=== PATIENT | male | born 1945 | race Caucasian/White ===

== ENCOUNTER → 2016-08-16 | Outpatient (CLI) | payer MEDICARE, MEDICAID ==
[~2016-08-16] MED LIST: ISOVUE-370 76% 100ML VIAL (Q9967) As Ordered ONE
--- NOTE | 2016-08-17 06:41 | REP ---
CT ANGIOGRAM ABDOMEN: CT angiogram abdomen performed in the axial plane with sagittal and coronal reconstruction images. Patient underwent intravenous contrast administration, 100 mL of Isovue 370. Comparison made with prior CT 05/15/2009. The visualized lung bases demonstrates mild fibrotic. The liver is grossly unremarkable. Calcified granulomas are seen in the spleen. The adrenals, pancreas and kidneys are unremarkable in appearance. 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 Maximum AP diameter is 4.3 cm. This has increased in diameter compared to the prior CT of 05/15/2009 when maximum AP diameter was 2.7 cm. There is mild intraluminal atherosclerotic plaquing and thrombus. Both common iliac arteries are mildly ectatic. There is no leak or dissection. Celiac artery is widely patent. Superior mesenteric artery demonstrates a previously placed stent in its proximal portion and the underlying lumen is widely patent with no stenosis. The inferior mesenteric artery is patent. Single renal arteries are present and are widely patent with no stenosis. There is mild narrowing at the origin of the left renal artery. No adenopathy is seen. There is no free air or free fluid. Scattered diverticula are seen of the left colon. IMPRESSION: No evidence of mesenteric artery stenosis. 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 Maximum AP diameter is 4.3 cm. This has increased in size since prior CT of 05/15/2009. There is no evidence of aneurysm leak or dissection. Signed by Rodrigo Sena MD 08/17/2016 04:53 P
== END ==
LOC: M RAD 15:15
PROVIDERS: ATTEND Internal Medicine
DX: R10.9 Unspecified abdominal pain (principal)
CPT/HCPCS: 74175; Q9967

== ENCOUNTER → 2017-10-05 | Outpatient (REF) | payer MEDICARE, MEDICAID ==
[2017-10-05 13:37] LABS: C REACTIVE PROTEIN QUANTITATIV 0.86 MG/DL (0.00-0.30)
== END ==
LOC: M LAB REF 12:32
DX: I30.0 Acute nonspecific idiopathic pericarditis (principal)
CPT/HCPCS: 86140

== ENCOUNTER → 2019-04-17 | Outpatient (CLI) | payer MEDICARE, MEDICAID ==
--- NOTE | 2019-04-17 15:02 | REP ---
Gastric emptying nuclear scintigraphy: History: Epigastric pain Technique: 1.1 mCi of technetium-99m sulfur colloid was ingested in two scrambled eggs and 6 ounces of water and sequential anterior and posterior images are acquired for an 89-minute imaging observation period. Regions of interest are drawn around the stomach to plot gastric emptying. Scintigraphic findings: Expected T1/2 is 90 minutes. 26 % emptying is observed in this patient during the 89-minute imaging observation period, for a calculated T1/2 in this patient of 168 minutes. Impression: Delayed gastric emptying. Electronically Signed by Markus Thurston MD 04/17/2019 02:54 P
== END ==
LOC: M RAD 12:16
PROVIDERS: ATTEND Internal Medicine Gastroenterology
DX: R10.9 Unspecified abdominal pain (principal)
CPT/HCPCS: 78264; A9541

== ENCOUNTER 2019-04-29 11:54 | Day surgery (SDC) | payer MEDICARE, MEDICAID ==
[~2019-04-29] VITALS: Ht 172.7 cm; Wt 72.1 kg
[~2019-04-29 11:54] MED LIST changes: +ASPI81TA26 PO; +CALCCAP4 PO; +CARV3.12 PO; +COLA100C5 PO; +FINA5TAB2 PO; +HYDR-3713 PO; -ISOVUE-370 76% 100ML VIAL (Q9967) As Ordered ONE; +METO5TAB2 PO; +PANT40TA3 PO; +PLAV1TAB2 PO; +PRAV20TA2 PO; +PREG50CA PO; +SUCR1TA PO
--- NOTE | 2019-04-29 13:29 | ROOR ---
Patient Name: Aquiles Xiong Procedure Date: 04/29/2019 1:09 PM Date of : 1945 Age: 74 Room: [facility] Gender: Male Note Status: Finalized Procedure: Upper Endoscopy + Biopsies Indications: Epigastric abdominal pain, Early satiety Providers: Sinan Nava MD Referring MD: JOSE GRAY JR, MD Requesting Provider: Medicines: Monitored Anesthesia Care Complications: No immediate complications. Procedure: Pre-Anesthesia Assessment: - The heart rate, respiratory rate, oxygen saturations, blood pressure, adequacy of pulmonary ventilation, and response to care were monitored throughout the procedure. The Endoscope was introduced through the mouth, and advanced to the second part of duodenum. The upper GI endoscopy was accomplished without difficulty. The patient tolerated the procedure well. Findings: The Z-line was regular and was found 40 cm from the incisors. A small hiatal hernia was present. No other significant abnormalities were identified in a careful examination of the stomach. Biopsies were taken with a cold forceps in the gastric antrum for Helicobacter pylori testing. The exam of the duodenum was otherwise normal. Impression: - Z-line regular, 40 cm from the incisors. - Small hiatal hernia. - Biopsies were taken with a cold forceps for Helicobacter pylori testing. - The examination was otherwise normal. Recommendation: - Patient has a contact number available for emergencies. The signs and symptoms of potential delayed complications were discussed with the patient. Return to normal activities tomorrow. Written discharge instructions were provided to the patient. - High fiber diet. - Discharge patient to home. - Continue present medications. - Await pathology results. - Return to referring physician. - The findings and recommendations were discussed with the patient's family. Sinan Nava MD Sinan Nava MD 04/29/2019 1:28:53 PM Electronically signed by Sinan Nava MD Number of Addenda: 0 Note Initiated On: 04/29/2019 1:09 PM Estimated Blood Loss: Estimated blood loss: none.
[2019-04-29 13:55] VITALS: BP 141/81
== END 2019-04-29 14:04 | disposition home or self-care (01) ==
LOC: M OPP 11:54
PROVIDERS: ATTEND Internal Medicine Gastroenterology
DX: K44.9 Diaphragmatic hernia without obstruction or gangrene (principal); R10.13 Epigastric pain; R68.81 Early satiety; K29.50 Unspecified chronic gastritis without bleeding; Z79.82 Long term (current) use of aspirin; Z79.891 Long term (current) use of opiate analgesic; Z79.899 Other long term (current) drug therapy; Z95.5 Presence of coronary angioplasty implant and graft; Z91.048 Other nonmedicinal substance allergy status

== ENCOUNTER → 2020-02-19 | Outpatient (REF) | payer MEDICARE, MEDICAID ==
[~2020-02-19] MED LIST changes: +PANT40TA29 PO; -PANT40TA3 PO
[2020-02-20 13:33] LABS: FOLATE 6.3 NG/ML
== END ==
LOC: M LAB REF 16:35
PROVIDERS: ATTEND Internal Medicine
DX: R41.3 Other amnesia (principal)

== ENCOUNTER → 2020-05-22 | Outpatient (REF) | payer MEDICARE, MEDICAID ==
[2020-05-22 17:22] LABS: AMYLASE 34 U/L (25-115); LIPASE 99 U/L (73-393)
== END ==
LOC: M LAB REF 16:31
PROVIDERS: ATTEND Internal Medicine
DX: R10.13 Epigastric pain (principal)

== ENCOUNTER → 2020-09-10 | Outpatient (REF) | payer MEDICARE, MEDICAID ==
[2020-09-10 12:38] LABS: BASO # 0.1 10^3/uL (0.0-0.2); EOS # 0.2 10^3/uL (0.0-0.5); EOS % 2.5 % (0.0-3.0); HEMATOCRIT 26.5 % (42.0-52.0); LYMPH # 0.9 10^3/uL (1.5-5.0); LYMPH % 9.5 % (24.0-44.0); MEAN CORPUSCULAR HEMOGLOBIN 27.6 pg (27.0-33.0); MEAN CORPUSCULAR HGB CONC 30.2 g/dl (32.0-36.5); MEAN CORPUSCULAR VOLUME 91.4 fl (80.0-96.0); MONO # 0.6 10^3/uL (0.0-0.8); MONO % 6.7 % (2.0-8.0); NEUTROPHILS # 7.4 10^3/uL (1.5-8.5); NEUTROPHILS % 79.7 % (36.0-66.0); WHITE BLOOD COUNT 9.3 10^3/uL (4.0-10.0)
[2020-09-10 12:59] LABS: PLATELET COUNT, AUTOMATED 1026 10^3/uL (150-450)
== END ==
LOC: M LAB REF 12:13
PROVIDERS: ATTEND Physician Assistant Medical
DX: K55.1 Chronic vascular disorders of intestine (principal); K22.70 Barrett's esophagus without dysplasia; I71.3 Abdominal aortic aneurysm, ruptured

== ENCOUNTER → 2020-12-01 | Outpatient (REF) | payer MEDICARE, MEDICAID | LOC: M LAB REF 16:44 | PROVIDERS: ATTEND Internal Medicine | DX: M31.6 Other giant cell arteritis (principal) ==

== ENCOUNTER → 2021-03-24 | Outpatient (CLI) | payer MEDICARE, MEDICAID ==
[~2021-03-24] MED LIST changes: +B-12100010 PO; +CARV12.5 PO; +DILT60TA PO; +FERR325T81 PO; +ISOS10TA3 PO; +LIDOCAINE 1% MDV 20ML VIAL As Ordered ONE; +LISI20TA33 PO; +POTA10CA32 PO; +SENN8.6T28 PO; +TRAM50TA2 PO; +XARE20TA PO
[2021-03-24 11:45] LABS: BASO # 0.1 10^3/uL (0.0-0.2); BASO % 0.8 % (0.0-1.0); EOS # 0.3 10^3/uL (0.0-0.5); EOS % 3.9 % (0.0-3.0); HEMATOCRIT 29.7 % (42.0-52.0); LYMPH # 1.1 10^3/uL (1.5-5.0); LYMPH % 13.2 % (24.0-44.0); MEAN CORPUSCULAR HEMOGLOBIN 26.5 pg (27.0-33.0); MEAN CORPUSCULAR HGB CONC 30.3 g/dl (32.0-36.5); MEAN CORPUSCULAR VOLUME 87.6 fl (80.0-96.0); MONO # 0.8 10^3/uL (0.0-0.8); MONO % 8.8 % (2.0-8.0); NEUTROPHILS # 6.2 10^3/uL (1.5-8.5); NEUTROPHILS % 73.1 % (36.0-66.0); PLATELET COUNT, AUTOMATED 508 10^3/uL (150-450); RED BLOOD COUNT 3.39 10^6/uL (4.30-6.10); WHITE BLOOD COUNT 8.5 10^3/uL (4.0-10.0)
[2021-03-24 12:26] LABS: INR 1.2; PROTHROMBIN TIME 15.6 SECONDS (12.7-14.5)
[2021-03-24 14:40] VITALS: BP 138/70
== END ==
LOC: M IRPRO 11:07
PROVIDERS: ATTEND Internal Medicine Medical Oncology
DX: D64.9 Anemia, unspecified (principal)

== ENCOUNTER 2021-06-24 03:22 | Inpatient (IN) | payer MEDICARE, MEDICAID ==
[2021-06-24] VITALS (37 sets, daily range): BP systolic 93–142; BP diastolic 50–77
[~2021-06-24] VITALS: Ht 172.7 cm; Wt 61.8 kg
[~2021-06-24 03:22] MED LIST changes: -LIDOCAINE 1% MDV 20ML VIAL As Ordered ONE
[2021-06-24] MEDS ORDERED: NOREPINEPHRINE 4 MG/4 ML AMP As Ordered ONE (04:50)
[2021-06-24] MEDS ORDERED: NOREPINEPHRINE BITARTRATE 8 MG in D5W 492 ML IV SCH ×2 (05:00→16:50)
[2021-06-24] MEDS ORDERED: VANCOMYCIN HCL 750 MG, VIAL MATE ADAPTER 1 EACH in NS 250 ML IV SCH (05:35)
[2021-06-24] MEDS ORDERED: ALBUTEROL SULFATE 2.5 MG/0.5 ML INH NEB SOLN NEB PRN (05:35)
[2021-06-24] MEDS ORDERED: NS 500 ML IV ONE (05:40)
[2021-06-24] MEDS ORDERED: BISACODYL 10 MG SUPP PR ONE (05:55)
[2021-06-24 05:58] LABS: HEMATOCRIT 25.3 % (42.0-52.0); HEMOGLOBIN 7.8 g/dl (13.5-17.5); MEAN CORPUSCULAR HEMOGLOBIN 26.1 pg (27.0-33.0); MEAN CORPUSCULAR HGB CONC 30.8 g/dl (32.0-36.5); MEAN CORPUSCULAR VOLUME 84.6 fl (80.0-96.0); RED BLOOD COUNT 2.99 10^6/uL (4.30-6.10); WHITE BLOOD COUNT 14.8 10^3/uL (4.0-10.0)
[2021-06-24] MEDS ORDERED: NS 1,000 ML IV SCH (06:00)
[2021-06-24] MEDS ORDERED: DEXTROSE 50% 50 ML SYRINGE IV PRN (06:05)
[2021-06-24] MEDS ORDERED: GLUCOSE 4GM CHEW TABLET PO PRN (06:05)
[2021-06-24] MEDS ORDERED: GLUCAGON INJ 1MG VIAL SC PRN (06:05)
[2021-06-24 06:24] LABS: CALCIUM LEVEL 8.3 MG/DL (8.8-10.2); CREATININE FOR GFR 1.85 MG/DL (0.70-1.30); GLOMERULAR FILTRATION RATE 38.1 (>42); POTASSIUM SERUM 5.2 MEQ/L (3.5-5.1)
[2021-06-24 06:26] LABS: PLATELET COUNT, AUTOMATED 1056 10^3/uL (150-450)
[2021-06-24] MEDS: PIPERACILLIN/TAZOBACTAM SOD 3.375 GM in D5W MINI-BAG PLUS 50 ML IV SCH ×3 (06:46→17:13)
[2021-06-24] MEDS ORDERED: ISOS10TA3 PO (06:56)
[2021-06-24] MEDS ORDERED: XARE20TA PO (06:56)
[2021-06-24] MEDS ORDERED: LISI20TA33 PO (06:56)
[2021-06-24] MEDS ORDERED: ACET-897 PO (06:56)
[2021-06-24] MEDS ORDERED: POTA-149 PO (06:56)
[2021-06-24] MEDS ORDERED: CARV12.5 PO (06:56)
[2021-06-24] MEDS ORDERED: TRAM50TA2 PO (06:56)
[2021-06-24] MEDS ORDERED: HOME MED LIST COMPLETE! XX SCH (07:00)
[2021-06-24] MEDS: HumaLOG INSULIN (NovoLOG) PER UNIT SC SCH ×2 (07:30→11:57)
[2021-06-24] MEDS ORDERED: ENOXAPARIN 40MG/0.4ML SYRINGE (J1650 PER 10MG) SC SCH (09:00)
[2021-06-24] MEDS ORDERED: VANCOMYCIN HCL 1,000 MG, VIAL MATE ADAPTER 1 EACH in NS 250 ML IV SCH (14:00)
[2021-06-24 14:36] LABS: CALCIUM LEVEL 8.9 MG/DL (8.8-10.2); CREATININE FOR GFR 1.48 MG/DL (0.70-1.30); GLOMERULAR FILTRATION RATE 49.3 (>42); POTASSIUM SERUM 4.5 MEQ/L (3.5-5.1)
[2021-06-24 15:26] LABS: APPEARANCE, URINE HAZY (CLEAR); BACTERIA, URINE AUTO NEGATIVE (NEGATIVE); BILIRUBIN, URINE AUTO NEGATIVE (NEGATIVE); BLOOD, URINE BLOOD 2+ (NEGATIVE); COLOR, URINE YELLOW (YELLOW); GLUCOSE, URINE (UA) AUTO NEGATIVE (NEGATIVE); KETONE, URINE AUTO NEGATIVE (NEGATIVE); LEUKOCYTE ESTERASE, URINE AUTO NEGATIVE (NEGATIVE); MUCUS, URINE SMALL (NEGATIVE); NITRITE, URINE AUTO NEGATIVE (NEGATIVE); PROTEIN, URINE AUTO NEGATIVE (NEGATIVE); RBC, URINE AUTO 77 /HPF (0-3); SPECIFIC GRAVITY URINE AUTO 1.021 (1.002-1.035); SQUAMOUS EPITHELIAL CELL UR AU 0 /HPF (0-6); UROBILINOGEN, URINE AUTO 0.2 mg/dL (0.0-2.0); WBC, URINE AUTO 6 /HPF (0-3)
[2021-06-24] MEDS: PRAVASTATIN 20 MG TAB PO SCH (15:57)
[2021-06-24] MEDS: FINASTERIDE 5 MG TAB PO SCH (15:57)
[2021-06-24] MEDS: CLOPIDOGREL 75 MG TAB PO SCH (15:57)
[2021-06-24] MEDS: ACETAMINOPHEN 500 MG TAB PO SCH ×2 (15:58→21:00)
[2021-06-24] MEDS: SUCRALFATE 1 GM TAB PO SCH (21:00)
[2021-06-24] MEDS: PREGABALIN 50 MG CAP (LYRICA) PO SCH (21:00)
[2021-06-24] MEDS: RIVAROXABAN 20 MG TAB (XARELTO) PO SCH (21:00)
[2021-06-24] MEDS: METOCLOPRAMIDE 5 MG TAB PO SCH (21:00)
[2021-06-24] MEDS: PANTOPRAZOLE 40MG TAB (PROTONIX) PO SCH (21:00)
[2021-06-24] MEDS ORDERED: HumaLOG INSULIN (NovoLOG) PER UNIT SC SCH (21:00)
[2021-06-25] VITALS (11 sets, daily range): BP systolic 96–123; BP diastolic 54–75
[2021-06-25] MEDS: PIPERACILLIN/TAZOBACTAM SOD 3.375 GM in D5W MINI-BAG PLUS 50 ML IV SCH ×5 (00:19→23:45)
[2021-06-25 05:06] LABS: HEMATOCRIT 22.5 % (42.0-52.0); HEMOGLOBIN 7.1 g/dl (13.5-17.5); MEAN CORPUSCULAR HEMOGLOBIN 26.5 pg (27.0-33.0); MEAN CORPUSCULAR HGB CONC 31.6 g/dl (32.0-36.5); RED BLOOD COUNT 2.68 10^6/uL (4.30-6.10); WHITE BLOOD COUNT 8.6 10^3/uL (4.0-10.0)
[2021-06-25 05:19] LABS: PLATELET COUNT, AUTOMATED 823 10^3/uL (150-450)
[2021-06-25 05:26] LABS: BLOOD UREA NITROGEN 14 MG/DL (7-18); CALCIUM LEVEL 8.7 MG/DL (8.8-10.2); CARBON DIOXIDE LEVEL 30 MEQ/L (21-32); CHLORIDE LEVEL 104 MEQ/L (98-107); CREATININE FOR GFR 1.21 MG/DL (0.70-1.30); GLOMERULAR FILTRATION RATE > 60.0 (>42); GLUCOSE, FASTING 88 MG/DL (70-100); POTASSIUM SERUM 4.3 MEQ/L (3.5-5.1); SODIUM LEVEL 138 MEQ/L (136-145)
[2021-06-25] MEDS: METOCLOPRAMIDE 5 MG TAB PO SCH ×2 (08:36→21:25)
[2021-06-25] MEDS: CLOPIDOGREL 75 MG TAB PO SCH (08:36)
[2021-06-25] MEDS: PRAVASTATIN 20 MG TAB PO SCH (08:36)
[2021-06-25] MEDS: PANTOPRAZOLE 40MG TAB (PROTONIX) PO SCH ×2 (08:36→21:25)
[2021-06-25] MEDS: SUCRALFATE 1 GM TAB PO SCH ×2 (08:37→21:25)
[2021-06-25] MEDS: ACETAMINOPHEN 500 MG TAB PO SCH ×3 (08:37→21:25)
[2021-06-25] MEDS: FINASTERIDE 5 MG TAB PO SCH (15:19)
[2021-06-25] MEDS: RIVAROXABAN 20 MG TAB (XARELTO) PO SCH (21:25)
[2021-06-25] MEDS: PREGABALIN 50 MG CAP (LYRICA) PO SCH (21:25)
[2021-06-26] VITALS (12 sets, daily range): BP systolic 128–138; BP diastolic 68–84
[2021-06-26] MEDS: PIPERACILLIN/TAZOBACTAM SOD 3.375 GM in D5W MINI-BAG PLUS 50 ML IV SCH ×4 (05:11→23:47)
[2021-06-26 06:24] LABS: HEMATOCRIT 22.9 % (42.0-52.0); HEMOGLOBIN 7.1 g/dl (13.5-17.5); MEAN CORPUSCULAR HEMOGLOBIN 25.7 pg (27.0-33.0); RED BLOOD COUNT 2.76 10^6/uL (4.30-6.10); WHITE BLOOD COUNT 9.7 10^3/uL (4.0-10.0)
[2021-06-26 06:27] LABS: PLATELET COUNT, AUTOMATED 1001 10^3/uL (150-450)
[2021-06-26 06:56] LABS: BLOOD UREA NITROGEN 9 MG/DL (7-18); CALCIUM LEVEL 9.4 MG/DL (8.8-10.2); CARBON DIOXIDE LEVEL 31 MEQ/L (21-32); CHLORIDE LEVEL 104 MEQ/L (98-107); CREATININE FOR GFR 1.04 MG/DL (0.70-1.30); GLOMERULAR FILTRATION RATE > 60.0 (>42); GLUCOSE, FASTING 92 MG/DL (70-100); POTASSIUM SERUM 4.3 MEQ/L (3.5-5.1); SODIUM LEVEL 140 MEQ/L (136-145)
[2021-06-26] MEDS: PANTOPRAZOLE 40MG TAB (PROTONIX) PO SCH ×2 (10:56→19:47)
[2021-06-26] MEDS: METOCLOPRAMIDE 5 MG TAB PO SCH ×2 (10:56→19:47)
[2021-06-26] MEDS: PRAVASTATIN 20 MG TAB PO SCH (10:57)
[2021-06-26] MEDS: FERROUS SULFATE 325MG TAB PO SCH (10:58)
[2021-06-26] MEDS: ACETAMINOPHEN 500 MG TAB PO SCH ×3 (10:58→19:47)
[2021-06-26] MEDS: CLOPIDOGREL 75 MG TAB PO SCH (10:58)
[2021-06-26] MEDS: SUCRALFATE 1 GM TAB PO SCH ×2 (10:58→19:47)
[2021-06-26] MEDS: TAMSULOSIN 0.4 MG CAP PO SCH (12:53)
[2021-06-26] MEDS: FINASTERIDE 5 MG TAB PO SCH (14:46)
[2021-06-26] MEDS: PREGABALIN 50 MG CAP (LYRICA) PO SCH (19:47)
[2021-06-26] MEDS: RIVAROXABAN 20 MG TAB (XARELTO) PO SCH (19:48)
[2021-06-27] MEDS ORDERED: FIORICET TAB PO ONE (01:00)
[2021-06-27] MEDS: PIPERACILLIN/TAZOBACTAM SOD 3.375 GM in D5W MINI-BAG PLUS 50 ML IV SCH (04:59)
[2021-06-27 06:00] VITALS: BP 122/82
[2021-06-27 06:27] LABS: HEMATOCRIT 31.7 % (42.0-52.0); MEAN CORPUSCULAR HEMOGLOBIN 26.7 pg (27.0-33.0); MEAN CORPUSCULAR HGB CONC 31.5 g/dl (32.0-36.5); MEAN CORPUSCULAR VOLUME 84.8 fl (80.0-96.0); PLATELET COUNT, AUTOMATED 880 10^3/uL (150-450); RED BLOOD COUNT 3.74 10^6/uL (4.30-6.10); WHITE BLOOD COUNT 8.7 10^3/uL (4.0-10.0)
[2021-06-27 06:50] LABS: BLOOD UREA NITROGEN 7 MG/DL (7-18); CALCIUM LEVEL 9.2 MG/DL (8.8-10.2); CARBON DIOXIDE LEVEL 29 MEQ/L (21-32); CHLORIDE LEVEL 107 MEQ/L (98-107); CREATININE FOR GFR 1.05 MG/DL (0.70-1.30); GLOMERULAR FILTRATION RATE > 60.0 (>42); GLUCOSE, FASTING 95 MG/DL (70-100); SODIUM LEVEL 141 MEQ/L (136-145)
[2021-06-27] MEDS: PANTOPRAZOLE 40MG TAB (PROTONIX) PO SCH (08:37)
[2021-06-27] MEDS: FERROUS SULFATE 325MG TAB PO SCH (08:37)
[2021-06-27] MEDS: PRAVASTATIN 20 MG TAB PO SCH (08:37)
[2021-06-27] MEDS: METOCLOPRAMIDE 5 MG TAB PO SCH (08:37)
[2021-06-27] MEDS: CLOPIDOGREL 75 MG TAB PO SCH (08:37)
[2021-06-27] MEDS: TAMSULOSIN 0.4 MG CAP PO SCH (08:37)
[2021-06-27] MEDS: SUCRALFATE 1 GM TAB PO SCH (08:37)
[2021-06-27] MEDS: ACETAMINOPHEN 500 MG TAB PO SCH (08:38)
[2021-06-27] MEDS ORDERED: FERR1TAB8 PO (11:54)
[2021-06-27] MEDS ORDERED: LEVO750T13 PO (11:54)
[2021-06-27] MEDS ORDERED: CVS1CAP2 PO (11:55)
[2021-06-27] MEDS ORDERED: LevoFLOXacin 750 MG TABLET PO SCH (18:00)
[2021-06-29 17:09] LABS: BODY FLUID CULTURE Not indicated. (.); LEGIONELLA ANTIGEN URINE Negative (Negative); ORGANISM ID Not indicated. (.); SPECIMEN SOURCE Urine (.); URINE STREP PNEUMONIAE ANTIGEN Negative (Negative)
== END 2021-06-27 15:17 | disposition home health service (06) | DRG 871 ==
LOC: M ICU 04:48 → M MSPAV 06-25 20:36
PROVIDERS: ADMIT Internal Medicine; ATTEND Internal Medicine
PROC: 30233N1 Transfusion of Nonautologous Red Blood Cells into Peripheral Vein, Percutaneous Approach (ICD-10-PCS; principal; 2021-06-24)
DX: A41.9 Sepsis, unspecified organism (principal); R65.21 Severe sepsis with septic shock; J18.9 Pneumonia, unspecified organism; J96.22 Acute and chronic respiratory failure with hypercapnia; G93.41 Metabolic encephalopathy; I13.0 Hypertensive heart and chronic kidney disease with heart failure and stage 1 through stage 4 chronic kidney disease, or unspecified chronic kidney disease; E87.2 Acidosis; N17.9 Acute kidney failure, unspecified; J44.0 Chronic obstructive pulmonary disease with (acute) lower respiratory infection; I48.20 Chronic atrial fibrillation, unspecified; K81.0 Acute cholecystitis; I25.10 Atherosclerotic heart disease of native coronary artery without angina pectoris; D75.89 Other specified diseases of blood and blood-forming organs; D50.9 Iron deficiency anemia, unspecified; E11.22 Type 2 diabetes mellitus with diabetic chronic kidney disease; I27.81 Cor pulmonale (chronic); I50.9 Heart failure, unspecified; N18.9 Chronic kidney disease, unspecified; Z79.01 Long term (current) use of anticoagulants; Z79.02 Long term (current) use of antithrombotics/antiplatelets; Z79.899 Other long term (current) drug therapy; Z79.891 Long term (current) use of opiate analgesic; Z87.891 Personal history of nicotine dependence; Y95 Nosocomial condition; Z20.822 Contact with and (suspected) exposure to COVID-19; Z98.890 Other specified postprocedural states

== ENCOUNTER → 2021-08-28 | Outpatient (CLI) | payer MEDICARE, MEDICAID ==
[~2021-08-28] MED LIST changes: +ACET-897 PO; +CVS1CAP2 PO; +FERR1TAB8 PO; +LEVO750T13 PO; +POTA-149 PO
== END ==
LOC: M LABSMTC 10:09
PROVIDERS: ATTEND Anesthesiology
DX: Z01.812 Encounter for preprocedural laboratory examination (principal); Z20.822 Contact with and (suspected) exposure to COVID-19

== ENCOUNTER 2021-09-02 13:32 | Day surgery (SDC) | payer MEDICARE, MEDICAID ==
[~2021-09-02] VITALS: Ht 170.2 cm; Wt 53.7 kg
[~2021-09-02 13:32] MED LIST changes: +DILT1TAB12; +ceFAZolin SOD 2 GM in IV 1 EA IV ONE
[2021-09-02] MEDS ORDERED: LR 1,000 ML IV SCH ×2 (13:45→18:30)
[2021-09-02] MEDS ORDERED: INSULIN LISPRO (NovoLOG) PER UNIT SC PRN ×2 (13:45→18:30)
[2021-09-02] MEDS ORDERED: VANCOMYCIN 1000MG/20ML VIAL As Ordered ONE (15:21)
[2021-09-02] MEDS ORDERED: MUPIROCIN 2% OINT 22 GM TUBE As Ordered ONE (15:22)
[2021-09-02] MEDS ORDERED: ISOVUE-300 61% 50ML VIAL As Ordered ONE (15:22)
[2021-09-02] MEDS ORDERED: LIDOCAINE 1% MDV 20ML VIAL As Ordered ONE (15:22)
[2021-09-02] MEDS ORDERED: MIDAZOLAM INJ 2MG/2ML VIAL (J2250 PER 1MG) As Ordered ONE (18:22)
[2021-09-02] MEDS ORDERED: propofoL 200 MG/20 ML VIAL As Ordered ONE (18:22)
[2021-09-02] MEDS ORDERED: LIDOCAINE 2% 100MG/5ML SDV (FOR ANES.) As Ordered ONE (18:22)
[2021-09-02] MEDS ORDERED: fentaNYL 100 MCG/2 ML INJECTION As Ordered ONE (18:22)
[2021-09-02] MEDS ORDERED: fentaNYL 100 MCG/2 ML INJECTION IV PRN (18:30)
[2021-09-02] MEDS ORDERED: ONDANSETRON 4MG/2ML VIAL IV PRN (18:30)
[2021-09-02] MEDS ORDERED: PHENYLephrine 500MCG 5ML (100MCG/ML) SYRINGE As Ordered ONE (18:39)
[2021-09-02 19:39] VITALS: BP 143/64
[2021-09-02] MEDS ORDERED: traMADol 50 MG TAB PO PRN (19:45)
[2021-09-02] MEDS ORDERED: ACETAMINOPHEN TAB 650MG DOSE (2X325MG) PO PRN (19:45)
[2021-09-02] MEDS ORDERED: NITROGLYCERIN 0.4 MG SUBL TABLET SL PRN (19:50)
[2021-09-02 20:00] VITALS: BP 148/78
[2021-09-02] MEDS: FERROUS SULFATE 325MG TAB PO SCH (20:39)
[2021-09-02] MEDS: ASCORBIC ACID 250 MG TAB PO SCH (20:39)
[2021-09-02] MEDS: PANTOPRAZOLE 40MG TAB (PROTONIX) PO SCH (20:39)
[2021-09-02] MEDS: CARVedilol 6.25 MG TAB PO SCH (20:40)
[2021-09-02 21:00] VITALS: BP 159/74
[2021-09-02] MEDS ORDERED: PREGABALIN 50 MG CAP (LYRICA) PO SCH (21:00)
[2021-09-02 22:00] VITALS: BP 139/67
[2021-09-02] MEDS ORDERED: PILL CUTTER 1 EACH XX PRN (22:00)
[2021-09-02 23:00] VITALS: BP 131/73
[2021-09-03] VITALS: BP 137/70
[2021-09-03 01:00] VITALS: BP 150/79
[2021-09-03 04:00] VITALS: BP 152/88
[2021-09-03] MEDS ORDERED: SUCRALFATE 1 GM TAB PO SCH (07:30)
[2021-09-03 07:36] VITALS: BP 129/80
[2021-09-03] MEDS ORDERED: RIVAROXABAN 10 MG TAB (XARELTO) PO SCH (08:00)
[2021-09-03 08:56] VITALS: BP 129/80
[2021-09-03] MEDS: CARVedilol 6.25 MG TAB PO SCH (08:56)
[2021-09-03] MEDS: ASCORBIC ACID 250 MG TAB PO SCH (08:57)
[2021-09-03] MEDS: PANTOPRAZOLE 40MG TAB (PROTONIX) PO SCH (08:57)
[2021-09-03] MEDS: FERROUS SULFATE 325MG TAB PO SCH (08:57)
[2021-09-03] MEDS ORDERED: POTASSIUM CHLORIDE 10MEQ SR TABLET PO SCH (09:00)
[2021-09-03] MEDS ORDERED: CLOPIDOGREL 75 MG TAB PO SCH (09:00)
[2021-09-03] MEDS ORDERED: PRAVASTATIN 20 MG TAB PO SCH (09:00)
[2021-09-03 11:39] VITALS: BP 143/88
[2021-09-03] MEDS ORDERED: ASCO250T20 PO (13:05)
[2021-09-03] MEDS ORDERED: CARV6.25 PO (13:05)
[2021-09-03] MEDS ORDERED: XARE10TA PO (13:05)
[2021-09-03] MEDS ORDERED: FINASTERIDE 5MG TAB PO SCH (15:00)
[2021-09-03] MEDS ORDERED: RIVAROXABAN 20 MG TAB (XARELTO) PO SCH (18:00)
== END 2021-09-03 15:43 | disposition home or self-care (01) ==
LOC: M SDC 13:32 → M PCU 19:39 → M SDC 09-03 15:43
PROVIDERS: ATTEND Internal Medicine Cardiovascular Disease
DX: T82.111A Breakdown (mechanical) of cardiac pulse generator (battery), initial encounter (principal); T82.110A Breakdown (mechanical) of cardiac electrode, initial encounter; I49.5 Sick sinus syndrome; R60.0 Localized edema; I35.1 Nonrheumatic aortic (valve) insufficiency; I25.10 Atherosclerotic heart disease of native coronary artery without angina pectoris; I25.2 Old myocardial infarction; I10 Essential (primary) hypertension; E78.00 Pure hypercholesterolemia, unspecified; N40.0 Benign prostatic hyperplasia without lower urinary tract symptoms; J44.9 Chronic obstructive pulmonary disease, unspecified; F03.90 Unspecified dementia, unspecified severity, without behavioral disturbance, psychotic disturbance, mood disturbance, and anxiety; D64.9 Anemia, unspecified; Z79.899 Other long term (current) drug therapy; Z79.02 Long term (current) use of antithrombotics/antiplatelets; Z79.01 Long term (current) use of anticoagulants; I71.4 Abdominal aortic aneurysm, without rupture; I73.9 Peripheral vascular disease, unspecified
CPT/HCPCS: 33207; 71045; 71046; 76000; 93005; C1769; C1786; C1898; J0690; J2250; J2370; J3010; Q9967

== ENCOUNTER 2021-09-04 09:09 | Emergency (ER) | payer MEDICARE, MEDICAID ==
[~2021-09-04] VITALS: Ht 172.7 cm; Wt 54.1 kg
[~2021-09-04 09:09] MED LIST changes: +ASCO250T20 PO; +CARV6.25 PO; +XARE10TA PO; -ceFAZolin SOD 2 GM in IV 1 EA IV ONE
[2021-09-04 13:00] VITALS: BP 131/72
== END 2021-09-04 13:25 | disposition home or self-care (01) ==
LOC: M ED 09:09
DX: L76.22 Postprocedural hemorrhage of skin and subcutaneous tissue following other procedure (principal); Z95.0 Presence of cardiac pacemaker; E11.9 Type 2 diabetes mellitus without complications; I13.0 Hypertensive heart and chronic kidney disease with heart failure and stage 1 through stage 4 chronic kidney disease, or unspecified chronic kidney disease; I50.9 Heart failure, unspecified; J44.9 Chronic obstructive pulmonary disease, unspecified; Z79.899 Other long term (current) drug therapy

== ENCOUNTER → 2024-03-26 | Outpatient (REF) | payer MEDICARE, MEDICAID ==
[~2024-03-26] MED LIST changes: +CARV6.25; +CLOP75TA2; +CLOP75TA99 PO; +FURO20TA2 PO; +LEVO1TAB40 PO; -LEVO750T13 PO; +NITR0.4S14 SL; -PLAV1TAB2 PO; -POTA10CA32 PO; +POTA10CA70 PO
[2024-03-26 18:53] LABS: FERRITIN 112.4 NG/ML (10.5-307.3)
[2024-03-26 18:54] LABS: PERCENT SATURATION 15.3 % (19.7-50.0)
== END ==
LOC: M LAB REF 17:35
PROVIDERS: ATTEND Internal Medicine
DX: D50.9 Iron deficiency anemia, unspecified (principal)

== ENCOUNTER → 2024-07-08 | Outpatient (REF) | payer MEDICARE, MEDICAID ==
[2024-07-08 15:32] LABS: FOLATE 14.2 NG/ML (>5.4)
== END ==
LOC: M LAB REF 14:13
PROVIDERS: ATTEND Internal Medicine
DX: D64.9 Anemia, unspecified (principal)